=== PATIENT | female | born 1960 | race American Indian/Alaskan Native ===

== ENCOUNTER 2020-04-28 05:03 | Emergency (ER) | payer OTHER ==
--- NOTE | 2020-04-28 05:42 | Emergency Department Report ---
ED Chest Pain HPI - General Stated Complaint: CHEST PAIN PUI?: No Source: patient Mode of arrival: Ambulatory - History of Present Illness Initial Comments: Patient is a 59-year-old -[place] female with history of hypertension who presents for left arm and neck since yesterday morning. Pain is rated as 7/10. Sharp aching and reproducible. Patient states pain radiates from left posterior lateral neck into the left arm. pain is exacerbate by movement and palpation . there change no n/v, no dizziness no lightheadedness, no fever or chills, no cough, no history no diaphoresis. Symptoms rated getting is orally every 8 his weight and mildly irregularat 5/10 at this time. Weakness is a little while ago but not satisfied with the answer. MD Complaint: chest pain - Related Data Allergies Allergy/AdvReac Type Severity Reaction Status Date / Time No Known Allergies Allergy Unverified 02/14/16 09:15 ED Review of Systems ROS: Stated complaint: CHEST PAIN Other details as noted in HPI ED Past Medical Hx - Social History Smoking Status: Never Smoker Substance Use Type: None Critical care attestation.: If time is entered above; I have spent that time in minutes in the direct care of this critically ill patient, excluding procedure time. ED Disposition Condition: Stable Referrals: PRIMARY CARE, [Primary Care Provider] - 3-5 Days
--- NOTE | 2020-04-28 05:43 | Event Note ---
ED Screening Note Date of service: 04/28/20 Time: 05:42 ED Screening Note: Patient is a 59-year-old -[place] female with history of hypertension who presents for left arm and neck since yesterday morning. Pain is rated as 7/10. Sharp aching and reproducible. Patient states pain radiates from left posterior lateral neck into the left arm. pain is exacerbate by movement and palpation . there change no n/v, no dizziness no lightheadedness, no fever or chills, no cough, no history no diaphoresis. Symptoms rated getting is orally every 8 his weight and mildly irregularat 5/10 at this time. Weakness is a little while ago but not satisfied with the answer. MD Complaint: chest pain This initial assessment/diagnostic orders/clinical plan/treatment(s) is/are subject to change based on patients health status, clinical progression and re- assessment by fellow clinical providers in the ED. Further treatment and workup at subsequent clinical providers discretion. Patient/guardian urged not to elope from the ED as their condition may be serious if not clinically assessed and managed. Initial orders include: ekg, trop, bmp, cbc,cxr
[2020-04-28] MEDS ORDERED: ASPIRIN 325 MG TAB PO ONE (05:54)
[2020-04-28] MEDS ORDERED: ONDANSETRON 4 MG/2 ML INJ IV ONE (06:09)
[2020-04-28] MEDS ORDERED: MORPHINE 4 MG/1 ML INJ IV ONE (06:09)
[2020-04-28 06:15] LABS: Basophils % (Auto) 0.8 % (0.0-1.8); Eosinophils # (Auto) 0.6 K/mm3 (0.0-0.4); Eosinophils % (Auto) 11.3 % (0.0-4.3); Hematocrit 37.4 % (30.3-42.9); Hemoglobin 12.9 gm/dl (10.1-14.3); Lymphocytes # (Auto) 2.4 K/mm3 (1.2-5.4); Lymphocytes % (Auto) 44.4 % (13.4-35.0); Mean Corpuscular HGB Conc 34 % (30-34); Mean Corpuscular Volume 92 fl (79-97); Monocytes # (Auto) 0.5 K/mm3 (0.0-0.8); Monocytes % (Auto) 8.6 % (0.0-7.3); Platelet Count 307 K/mm3 (140-440); Red Blood Count 4.08 M/mm3 (3.65-5.03); Red Cell Distribution Width 13.8 % (13.2-15.2)
--- NOTE | 2020-04-28 06:15 | Emergency Department Report ---
HPI - General Chief Complaint: Neck Pain/Injury Time Seen by Provider: 04/28/20 06:02 - HPI HPI: This is a 59-year-old -[place] female who presents to the emergency department from home with complaint of pain to the left arm, left side of her neck, left side of the face, and a left-sided headache. The symptoms initially started last Friday, about 5 days ago. At this time it was intermittent, less intense, and mostly affecting the left upper arm and shoulder. However, this morning, around 5 AM, the patient says that it became much more intense, currently 9 out of 10 on a pain scale, and it started radiating up the left side of her face and the left side of the head. She denies any vision change, slurred speech, numbness or paresthesias, weakness. However, the patient does say that she has difficulty raising her left arm, essentially moving her left arm, secondary to increased pain. Earlier in the week the patient was taking Tylenol with some transient relief. The patient took ibuprofen last night around 8 PM, and then again around 1 AM this morning, without any relief. She has a past medical history of hypertension for which she is compliant on amlodipine 5 mg. Her primary care physician is a Dr. Tamra Meier, but she has not seen them regarding the symptoms. No recent travel or sick contacts at home. She denies any tobacco or illicit drug use. ED Past Medical Hx - Past Medical History Previous Medical History?: Yes Hx Hypertension: Yes - Surgical History Past Surgical History?: Yes Additional Surgical History: Hysterectomy - Social History Smoking Status: Never Smoker Substance Use Type: None - Medications Home Medications: Home Medications Medication Instructions Recorded Confirmed Last Taken Type HYDROcodone/APAP 5-325 [Winton 1 each PO Q6HR PRN #10 tablet 04/28/20 Unknown Rx 5/325] predniSONE [Deltasone] 20 mg PO QDAY #4 tab 04/28/20 Unknown Rx ED Review of Systems ROS: Stated complaint: CHEST PAIN Other details as noted in HPI Comment: All other systems reviewed and negative Constitutional: denies: chills, fever Eyes: denies: eye pain, vision change ENT: denies: ear pain, throat pain Respiratory: denies: cough, shortness of breath Cardiovascular: denies: chest pain, palpitations Gastrointestinal: denies: abdominal pain, vomiting Genitourinary: denies: dysuria, discharge Musculoskeletal: arthralgia, myalgia. denies: joint swelling Skin: denies: rash, lesions Neurological: headache. denies: numbness, paresthesias Physical Exam - Physical Exam Vital Signs: Vital Signs 04/28/20 05:10 Temperature 98.6 F Pulse Rate 94 H Respiratory 18 Rate Blood Pressure 166/109 O2 Sat by Pulse 98 Oximetry Physical Exam: GENERAL: The patient is well-developed well-nourished. HENT: Normocephalic. Atraumatic. Patient has moist mucous membranes. EYES: Extraocular motions are intact. Pupils equal reactive to light bilaterally. NECK: Supple. Trachea is midline. No carotid bruits auscultated. No posterior midline tenderness to palpation. Full range of motion. CHEST/LUNGS: Clear to auscultation. There is no respiratory distress noted. HEART/CARDIOVASCULAR: Regular. There is no tachycardia. There is no murmur. ABDOMEN: Abdomen is soft, nontender. Patient has normal bowel sounds. SKIN: Skin is warm and dry. NEURO: The patient is awake, alert, and oriented. The patient is cooperative. The patient has no focal neurologic deficits. Normal speech. MUSCULOSKELETAL: There is very mild tenderness to palpation to the left upper arm, but no obvious deformity. There is increased pain to the left arm with both passive and active range of motion. Radial pulse +2/4 and capillary refill less than 2 seconds to the affected left upper extremity. ED Course Vital Signs 04/28/20 05:10 Temperature 98.6 F Pulse Rate 94 H Respiratory 18 Rate Blood Pressure 166/109 O2 Sat by Pulse 98 Oximetry - Reevaluation(s) Reevaluation #1: 04/28/20 07:09 Patient just returned from CT. Her pain and symptoms are greatly improved. The head and facial pain has completely resolved. The arm pain is greatly decreased and only seems to bother her, or get exacerbated, when she tries to lift her arm above the level of her shoulder. We discussed the lab, EKG and chest x-ray results. I am waiting for the results of the CT studies. ED Medical Decision Making - Lab Data Result diagrams: 04/28/20 05:56 04/28/20 05:56 Lab Results 04/28/20 04/28/20 Range/Units 05:56 05:56 WBC 5.3 (4.5-11.0) K/mm3 RBC 4.08 (3.65-5.03) M/mm3 Hgb 12.9 (10.1-14.3) gm/dl Hct 37.4 (30.3-42.9) % MCV 92 (79-97) fl MCH 32 (28-32) pg MCHC 34 (30-34) % RDW 13.8 (13.2-15.2) % Plt Count 307 (140-440) K/mm3 Lymph % (Auto) 44.4 H (13.4-35.0) % [place] % (Auto) 8.6 H (0.0-7.3) % Eos % (Auto) 11.3 H (0.0-4.3) % Baso % (Auto) 0.8 (0.0-1.8) % Lymph # (Auto) 2.4 (1.2-5.4) K/mm3 [place] # (Auto) 0.5 (0.0-0.8) K/mm3 Eos # (Auto) 0.6 H (0.0-0.4) K/mm3 Baso # (Auto) 0.0 (0.0-0.1) K/mm3 Seg Neutrophils % 34.9 L (40.0-70.0) % Seg Neutrophils # 1.8 (1.8-7.7) K/mm3 Sodium 139 (137-145) mmol/L Potassium 4.3 (3.6-5.0) mmol/L Chloride 103.4 (98-107) mmol/L Carbon Dioxide 28 (22-30) mmol/L Anion Gap 12 mmol/L BUN 14 (7-17) mg/dL Creatinine 0.6 (0.6-1.2) mg/dL Estimated GFR > 60 ml/min BUN/Creatinine Ratio 23 % Glucose 108 H (65-100) mg/dL Calcium 9.2 (8.4-10.2) mg/dL Troponin T < 0.010 (0.00-0.029) ng/mL - EKG Data -: EKG Interpreted by [facility] EKG shows normal: sinus rhythm, axis, intervals, QRS complexes, ST-T waves (Some flattening of the T waves) Rate: normal - EKG Data When compared to previous EKG there are: previous EKG unavailable Interpretation: other (Sinus rhythm at 69 bpm, normal axis, normal intervals, flattening of T waves. No ST elevation HI.) - Radiology Data Radiology results: report reviewed CT HEAD WITHOUT CONTRAST INDICATION / CLINICAL INFORMATION: Left sided head and neck pain. TECHNIQUE: All CT scans at this location are performed using CT dose reduction for ALARA by means of automated exposure control. COMPARISON: None available. FINDINGS: HEMORRHAGE: None. EXTRA-AXIAL SPACES: Normal in size and morphology for the patient's age. VENTRICULAR SYSTEM: Normal in size and morphology for the patient's age. CEREBRAL PARENCHYMA: No significant abnormality. No acute territorial infarct. MIDLINE SHIFT / HERNIATION: None. CEREBELLUM / BRAINSTEM: No significant abnormality. ORBITS: Normal as vis ualized. SOFT TISSUES: No significant abnormality. SKULL: No significant abnormality. PARANASAL SINUSES / MASTOID AIR CELLS: Mild ethmoid mucosal thickening. ADDITIONAL FINDINGS: None. IMPRESSION: 1. No acute intracranial abnormality. CTA NECK WITH CONTRAST HISTORY: Left-sided head and neck pain COMPARISON: CT head performed earlier today TECHNIQUE: Routine CTA of the neck is performed. 3-D/MIP reformats were postprocessed. Percentage stenosis is determined by direct quantitative measurements of diseased internal carotid artery diameter compared with normal distal internal carotid artery reference segments or by criteria similar to NASCET where applicable. CONTRAST: 100 ml of Omnipaque 350 FINDINGS: Aortic arch: No significant abnormality. Cervical vertebral arteries: No significant abnormality. Common carotid arteries: No significant abnormality. Cervical internal carotid arteries: No significant abnormality. Additional findings: None. IMPRESSION: No significant abnormality. CTA HEAD WITH CONTRAST HISTORY: Left-sided head and neck pain COMPARISON: CT head performed earlier today TECHNIQUE: Routine non-contrast CT Head, CTA of the head and post-contrast CT Head are performed. 3-D/MIP reformats postprocessed. All CT scans at this location are performed using CT dose reduction for ALARA by means of automated exposure control CONTRAST: 100 ml of Omnipaque 350 FINDINGS: CTA Head: Intracranial vertebral arteries: No significant abnormality. Basilar artery: No significant abnormality. Posterior cerebral arteries: No significant abnormality. Intracranial internal carotid arteries: Mild to moderate partially calcified plaques are identified in the supraclinoid ICA. The left side is slightly more affected with narrowing estimated at 50%. Anterior cerebral arteries: The left A1 segment is hypoplastic. The anterior cerebral arteries are patent otherwise. Middle cerebral arteries: No significant abnormality. Dural venous sinuses:Not optimally opacified. No significant abnormality. Additional findings: None. IMPRESSION: No hemodynamically significant stenosis, large vessel occlusion or aneurysm. Mild to moderate atherosclerotic disease in the supraclinoid ICAs, left greater than right. - Medical Decision Making This patient presents to the emergency department with intense left arm, neck, face and head pain. She had been mostly dealing with the arm and neck pain over the past week but the other symptoms started, and the pain worsened, this morning. On examination the patient does not have any focal, motor or sensory deficits. There is some reproducible tenderness to palpation along the left arm and left shoulder. Unable to reproduce facial and head pain to palpation. Cranial nerves II through XII grossly intact. The patient has full range of motion of the left upper extremity but both passive and active range of motion causes increased pain. She has good capillary refill and a radial pulse and appears neurovascularly intact. Patient had an EKG done through triage that shows no morphology consistent with ST elevation myocardial infarction or any dysrhythmia. Labs also are unremarkable including CBC, metabolic panel and a negative troponin. The patient had a negative CT scan of the head without contrast that did not show any evidence of hemorrhage or large vessel occlusion. A CT angiography of the head and neck was ordered to rule out carotid or vertebral dissection, signs of vasculitis, and to look into other etiology of the patient's symptoms. Overall the CT angiography studies were negative for any acute process or etiology of the patient's complaints. Incidentally it shows mild to moderate left carotid narrowing due to atherosclerosis and this was discussed with the patient. The patient received 1 dose of IV analgesia and upon reevaluation the head and facial pain have resolved and the arm pain is greatly reduced. She was reevaluated multiple times over multiple hours and says she is feeling greatly improved. Vital signs have been reassuring throughout her ED course. She will be discharged home to follow-up with her primary care physician and will return to the emergency department with any worsening of her symptoms or with any acute distress. Critical Care Time: No Critical care attestation.: If time is entered above; I have spent that time in minutes in the direct care of this critically ill patient, excluding procedure time. ED Disposition Clinical Impression: Facial pain, Left arm pain, Neuropathy Headache Qualifiers: Headache type: unspecified Headache chronicity pattern: unspecified pattern Intractability: not intractable Qualified Code(s): R51.9 - Headache, unspecified Disposition: DC-01 TO HOME OR SELFCARE Is pt being admited?: No Condition: Stable Instructions: General Headache Without Cause, Neuropathic Pain Additional Instructions: Please follow-up with your primary care physician in the next few days. Take your medications as prescribed. You have been prescribed a medication that is sedating and therefore should not be taken prior to driving, working, and responsible for children and in no way should be mixed with alcohol of any quantity. Return to the emergency department with any worsening of your symptoms, new or concerning symptoms not addressed during this current emergency department visit, or with any acute distress. Prescriptions: predniSONE [Deltasone] 20 mg PO QDAY #4 tab HYDROcodone/APAP 5-325 [[place] 5/325] 1 each PO Q6HR PRN #10 tablet PRN Reason: Pain Referrals: PRIMARY CARE, [Primary Care Provider] - 2-3 Days Time of Disposition: 07:56 Heart Score - HEART Score History: Slightly suspicious EKG: Normal Age: 45-65 Risk factors: 1-2 risk factors Troponin: < normal limit HEART Score: 2 - Critical Actions Critical Actions: 0-3 pts:0.9-1.7%risk of adverse cardiac event.Candidate for discharge
[2020-04-28 06:31] LABS: BUN/Creatinine Ratio 23; Blood Urea Nitrogen 14 mg/dL (7-17); Calcium 9.2 mg/dL (8.4-10.2); Hemolysis Index 0
[2020-04-28] MEDS ORDERED: methylPREDNISolone Sod Succinate 125 MG/2 ML INJ IV ONE (06:32)
--- NOTE | 2020-04-28 06:36 | XRay Report ---
CHEST 1 VIEW 04/28/2020 5:17 AM INDICATION / CLINICAL INFORMATION: Chest Pain. COMPARISON: None available. FINDINGS: SUPPORT DEVICES: None. HEART / MEDIASTINUM: No significant abnormality. LUNGS / PLEURA: No significant pulmonary or pleural abnormality. No pneumothorax. ADDITIONAL FINDINGS: No significant additional findings. IMPRESSION: 1. No acute findings. No change. Signer Name: Fei Hui MD Signed: 04/28/2020 6:32 AM Workstation Name: [id number]
--- NOTE | 2020-04-28 07:21 | Cat Scan Report ---
CT HEAD WITHOUT CONTRAST INDICATION / CLINICAL INFORMATION: Left sided head and neck pain. TECHNIQUE: All CT scans at this location are performed using CT dose reduction for ALARA by means of automated exposure control. COMPARISON: None available. FINDINGS: HEMORRHAGE: None. EXTRA-AXIAL SPACES: Normal in size and morphology for the patient's age. VENTRICULAR SYSTEM: Normal in size and morphology for the patient's age. CEREBRAL PARENCHYMA: No significant abnormality. No acute territorial infarct. MIDLINE SHIFT / HERNIATION: None. CEREBELLUM / BRAINSTEM: No significant abnormality. ORBITS: Normal as visualized. SOFT TISSUES: No significant abnormality. SKULL: No significant abnormality. PARANASAL SINUSES / MASTOID AIR CELLS: Mild ethmoid mucosal thickening. ADDITIONAL FINDINGS: None. IMPRESSION: 1. No acute intracranial abnormality. Signer Name: Fei Hui MD Signed: 04/28/2020 7:17 AM Workstation Name: [id number]
--- NOTE | 2020-04-28 07:48 | Cat Scan Report ---
CTA NECK WITH CONTRAST HISTORY: Left-sided head and neck pain COMPARISON: CT head performed earlier today TECHNIQUE: Routine CTA of the neck is performed. 3-D/MIP reformats were postprocessed. Percentage st enosis is determined by direct quantitative measurements of diseased internal carotid artery diameter compared with normal distal internal carotid artery reference segments or by criteria similar to CHAS CET where applicable. CONTRAST: 100 ml of Omnipaque 350 FINDINGS: Aortic arch: No significant abnormality. Cervical vertebral arteries: No significant abnormality. Common carotid arteries: No significant abnormality. Cervical internal carotid arteries: No significant abnormality. Additional findings: None. IMPRESSION: No significant abnormality. CTA HEAD WITH CONTRAST HISTORY: Left-sided head and neck pain COMPARISON: CT head performed earlier today TECHNIQUE: Routine non-contrast CT Head, CTA of the head and post-contrast CT Head are performed. 3-D /MIP reformats postprocessed. All CT scans at this location are performed using CT dose reduction for ALARA by means of automated e xposure control CONTRAST: 100 ml of Omnipaque 350 FINDINGS: CTA Head: Intracranial vertebral arteries: No significant abnormality. Basilar artery: No significant abnormality. Posterior cerebral arteries: No significant abnormality. Intracranial internal carotid arteries: Mild to moderate partially calcified plaques are identified i n the supraclinoid ICA. The left side is slightly more affected with narrowing estimated at 50%. Anterior cerebral arteries: The left A1 segment is hypoplastic. The anterior cerebral arteries are pa tent otherwise. Middle cerebral arteries: No significant abnormality. Dural venous sinuses:Not optimally opacified. No significant abnormality. Additional findings: None. IMPRESSION: No hemodynamically significant stenosis, large vessel occlusion or aneurysm. Mild to moderate atheros clerotic disease in the supraclinoid ICAs, left greater than right. Signer Name: Sánchez Bai Jr, MD Signed: 04/28/2020 7:44 AM Workstation Name: [id number]
[2020-04-28 08:33] VITALS: BP 128/69
== END 2020-04-28 08:10 | disposition home or self-care (01) ==
LOC: ED 05:03
DX: G62.9 Polyneuropathy, unspecified (principal); R51.9 Headache, unspecified; M79.602 Pain in left arm; I10 Essential (primary) hypertension; Z90.710 Acquired absence of both cervix and uterus; Z79.899 Other long term (current) drug therapy
CPT/HCPCS: 36415; 70450; 70496; 70498; 71045; 80048; 84484; 85025; 93005; 96374; 96375; 99285; J2270; J2405; J2930; Q9967

== ENCOUNTER 2021-06-01 11:18 | Emergency (ER) | payer OTHER ==
[2021-06-01] MEDS ORDERED: SODIUM CHLORIDE 0.9% 1000 ML 1,000 ML IV ONE (11:43)
[2021-06-01] MEDS ORDERED: KETOROLAC 30 MG/1 ML INJ IV ONE (11:43)
--- NOTE | 2021-06-01 12:17 | XRay Report ---
CHEST 1 VIEW 06/01/2021 11:47 AM INDICATION / CLINICAL INFORMATION: Dyspnea. COMPARISON: 04/28/2020 FINDINGS: SUPPORT DEVICES: None. HEART / MEDIASTINUM: No significant abnormality. LUNGS / PLEURA: No significant pulmonary or pleural abnormality. No pneumothorax. ADDITIONAL FINDINGS: No significant additional findings. IMPRESSION: 1. No acute findings. Signer Name: Jaycob Collins MD Signed: 06/01/2021 12:13 PM Workstation Name: [id number]
[2021-06-01 12:29] LABS: Basophils # (Auto) 0.1 K/mm3 (0.0-0.1); Eosinophils # (Auto) 0.3 K/mm3 (0.0-0.4); Eosinophils % (Auto) 5.5 % (0.0-4.3); Hematocrit 37.8 % (30.3-42.9); Hemoglobin 12.4 gm/dl (10.1-14.3); Lymphocytes # (Auto) 2.1 K/mm3 (1.2-5.4); Lymphocytes % (Auto) 41.6 % (13.4-35.0); Mean Corpuscular HGB Conc 33 % (30-34); Mean Corpuscular Volume 90 fl (79-97); Monocytes # (Auto) 0.6 K/mm3 (0.0-0.8); Monocytes % (Auto) 11.7 % (0.0-7.3); Platelet Count 382 K/mm3 (140-440); Red Blood Count 4.19 M/mm3 (3.65-5.03); Red Cell Distribution Width 13.9 % (13.2-15.2)
[2021-06-01 12:41] LABS: INR 0.95 (0.87-1.13)
[2021-06-01 12:51] LABS: Alanine Aminotransferase 31 units/L (7-56); Albumin 4.6 g/dL (3.9-5); Blood Urea Nitrogen 17 mg/dL (7-17); Calcium 9.9 mg/dL (8.4-10.2); Hemolysis Index 1
[2021-06-01 12:52] LABS: BUN/Creatinine Ratio 24
--- NOTE | 2021-06-01 13:09 | Cat Scan Report ---
CT HEAD WITHOUT CONTRAST INDICATION / CLINICAL INFORMATION: Headache. TECHNIQUE: All CT scans at this location are performed using CT dose reduction for ALARA by means of automated e xposure control. COMPARISON: CT head 04/28/2020 FINDINGS: HEMORRHAGE: No evidence of intracranial hemorrhage or extra-axial fluid collection. EXTRA-AXIAL SPACES: Cortical sulci, sylvian fissures and basilar cisterns have an unremarkable appear ance. VENTRICULAR SYSTEM: The third and lateral ventricles are of normal size and configuration. CEREBRAL PARENCHYMA: No areas of abnormal brain parenchymal attenuation are identified. There is no i ndication of recent infarction. MIDLINE SHIFT OR HERNIATION: There is no mass effect. CEREBELLUM / BRAINSTEM: Brainstem and cerebellum have an unremarkable appearance. MIDLINE STRUCTURES:No abnormalities of the pituitary gland or pineal region are identified. INTRACRANIAL VESSELS: Calcified atherosclerotic plaque is seen along the course the cavernous segment s of both internal carotid arteries extending up through the communicating segments bilaterally. ORBITS: visualized portions of the orbits have an unremarkable appearance. SOFT TISSUES of HEAD: No significant abnormality. CALVARIUM: Evaluation of bone windows reveals no abnormalities. PARANASAL SINUSES / MASTOID AIR CELLS: Inflammatory mucosal disease is present in ethmoid air cells b ilaterally and within the left sphenoid sinus. Similar findings were present on previous study. ADDITIONAL FINDINGS: None. IMPRESSION: 1. No significant intercranial abnormality on head CT without contrast. No significant interval jessica e since prior study 04/28/2020. Signer Name: Charles Machuca MD Signed: 06/01/2021 1:05 PM Workstation Name: [email or web address]
[2021-06-01] MEDS ORDERED: dexAMETHasone 4 MG/ML VIAL IV ONE (13:20)
--- NOTE | 2021-06-01 15:15 | Cat Scan Report ---
CT LUMBAR SPINE WITHOUT CONTRAST INDICATION: pain. TECHNIQUE: Axial CT images of the lumbar spine were obtained. Sagittal and coronal reformatted images were produ abad. All CT scans at this location are performed using CT dose reduction for ALARA by means of automa dorinda exposure control. COMPARISON: None available. FINDINGS: POST-SURGICAL CHANGES: None. ALIGNMENT: Normal alignment is maintained throughout the lumbar region. VERTEBRAE: Schmorl's node deformity is seen at inferior endplate T12 and superior endplate L3. No ind ication of fracture or bone destruction is observed. INTERVERTEBRAL DISCS: Multifocal disc vacuum phenomenon is noted. [id number] ANALYSIS: T12-L1.: Disc vacuum phenomena is evident. Schmorl's node deformity is present at inferior endplate T 12. There is no indication of disc herniation, central canal stenosis or neuroforaminal narrowing. L1-2: Loss of disc height and disc vacuum phenomena are noted. Anterior osteophyte formation is obser vicente. Bilateral facet arthropathy is evident. Mild broad-based disc bulge is present. In spite of thes e degenerative changes, the central spinal canal and neuroforamina are adequately maintained. L2-3: Mild anterior osteophyte formation is observed. Small broad-based disc bulge is present without significant thecal sac deformity. Mild bilateral facet arthritic changes are observed. Central spina l canal and neuroforamina are adequately maintained. L3-4: Loss of disc height and disc vacuum phenomena are noted. Bilateral facet arthropathy is evident . Hypertrophic changes and bilateral facet joint vacuum phenomena is observed. Mild broad-based disc bulge flattens the thecal sac slightly. Central spinal canal and neuroforamina are adequately maintai altagracia. L4-5: Disc height is normally maintained. There is no indication of disc extrusion or central canal s tenosis. Bilateral facet arthritic changes are observed. Hypertrophic changes and bilateral facet nikolas nt vacuum phenomena is observed. Central spinal canal and neuroforamina remain adequate in size at th e L4-5 level. L5-S1: Disc height is normally maintained. Mild facet arthropathy is present bilaterally. There is no indication of disc extrusion, central canal stenosis or neuroforaminal narrowing. Visualized portions of the sacrum have an unremarkable appearance. PARASPINAL SOFT TISSUES: No significant abnormality. ADDITIONAL FINDINGS: None. IMPRESSION: 1. Widespread lumbar spondylosis as described level by level above. 2. Central spinal canal and neuroforamina are adequately maintained throughout the lumbar region. Signer Name: Charles Machuca MD Signed: 06/01/2021 3:11 PM Workstation Name: [id number]
--- NOTE | 2021-06-01 15:33 | Emergency Department Report ---
ED General Adult HPI - General Chief complaint: Headache Stated complaint: SEVERE HEADACHE Time Seen by Provider: 06/01/21 11:42 Source: patient, EMS Mode of arrival: Stretcher Limitations: No Limitations - History of Present Illness Initial comments: sudden onset IRIZARRY, hypertensive at work , came in for suspicion of stroke, pt had headche then almost passed out no head injury back pain going to her legs -: Gradual, Sudden, hour(s) Location: head, lower extremity Severity scale (0 -10): 4 Quality: aching Consistency: intermittent Improves with: none Worsens with: none - Related Data Previous Rx's Medication Instructions Recorded Last Taken Type HYDROcodone/APAP 5-325 [[place] 1 each PO Q6HR PRN #10 tablet 04/28/20 Unknown Rx 5/325] predniSONE [Deltasone] 20 mg PO QDAY #4 tab 04/28/20 Unknown Rx Allergies Allergy/AdvReac Type Severity Reaction Status Date / Time No Known Allergies Allergy Verified 06/01/21 11:34 ED Review of Systems ROS: Stated complaint: SEVERE HEADACHE Other details as noted in HPI Constitutional: denies: chills, fever Eyes: denies: eye pain, eye discharge, vision change ENT: denies: ear pain, throat pain Respiratory: denies: cough, shortness of breath, wheezing Cardiovascular: denies: chest pain, palpitations Endocrine: no symptoms reported Gastrointestinal: denies: abdominal pain, nausea, diarrhea Genitourinary: denies: urgency, dysuria, discharge Musculoskeletal: denies: back pain, joint swelling, arthralgia Skin: denies: rash, lesions Neurological: denies: headache, weakness, paresthesias Psychiatric: denies: anxiety, depression Hematological/Lymphatic: denies: easy bleeding, easy bruising ED Past Medical Hx - Past Medical History Previous Medical History?: No Hx Hypertension: Yes Hx CVA: No Hx Heart Attack/AMI: No - Surgical History Past Surgical History?: No Additional Surgical History: Hysterectomy - Social History Smoking Status: Never Smoker Substance Use Type: None - Medications Home Medications: Home Medications Medication Instructions Recorded Confirmed Last Taken Type HYDROcodone/APAP 5-325 [[place] 1 each PO Q6HR PRN #10 tablet 04/28/20 Unknown Rx 5/325] predniSONE [Deltasone] 20 mg PO QDAY #4 tab 04/28/20 Unknown Rx ED Physical Exam - General Limitations: No Limitations General appearance: alert, in no apparent distress - Head Head exam: Present: atraumatic, normocephalic - Eye Eye exam: Present: normal appearance - ENT ENT exam: Present: mucous membranes moist - Neck Neck exam: Present: normal inspection - Respiratory Respiratory exam: Present: normal lung sounds bilaterally. Absent: respiratory distress - Cardiovascular Cardiovascular Exam: Present: regular rate, normal rhythm. Absent: systolic murmur, diastolic murmur, rubs, gallop - GI/Abdominal GI/Abdominal exam: Present: soft, normal bowel sounds - Extremities Exam Extremities exam: Present: normal inspection - Back Exam Back exam: Present: tenderness - Neurological Exam Neurological exam: Present: alert, oriented X3 - Psychiatric Psychiatric exam: Present: normal affect, normal mood - Skin Skin exam: Present: warm, dry, intact, normal color. Absent: rash ED Course Vital Signs 06/01/21 06/01/21 06/01/21 11:27 11:34 11:37 Temperature 97.5 F L 99 F Pulse Rate 100 H 110 H 113 H Respiratory 17 20 17 Rate Blood Pressure Blood Pressure 195/95 196/95 [Left] O2 Sat by Pulse 100 100 100 Oximetry 06/01/21 06/01/21 06/01/21 11:45 12:01 12:15 Temperature Pulse Rate 96 H 80 78 Respiratory 17 20 19 Rate Blood Pressure 171/73 132/72 140/73 Blood Pressure [Left] O2 Sat by Pulse 100 100 100 Oximetry 06/01/21 06/01/21 06/01/21 12:43 12:45 13:01 Temperature Pulse Rate 85 88 87 Respiratory 14 15 14 Rate Blood Pressure 189/128 189/128 139/82 Blood Pressure [Left] O2 Sat by Pulse 100 99 100 Oximetry 06/01/21 06/01/21 06/01/21 13:15 13:31 13:45 Temperature Pulse Rate 77 85 79 Respiratory 13 16 12 Rate Blood Pressure 145/78 131/80 118/88 Blood Pressure [Left] O2 Sat by Pulse 100 100 100 Oximetry 06/01/21 06/01/21 14:01 14:08 Temperature Pulse Rate 93 H Respiratory 15 Rate Blood Pressure 141/78 Blood Pressure 141/78 [Left] O2 Sat by Pulse 100 Oximetry ED Medical Decision Making - Lab Data Result diagrams: 06/01/21 11:57 06/01/21 11:57 - Radiology Data Radiology results: report reviewed, image reviewed - Medical Decision Making work up neg , ,ubar ct showed spondylosis , vss no distress BP imrpoved, back to [facility] Critical care attestation.: If time is entered above; I have spent that time in minutes in the direct care of this critically ill patient, excluding procedure time. ED Disposition Clinical Impression: Back pain, Sciatica, Headache Disposition: HOME / SELF CARE / HOMELESS Is pt being admited?: No Does the pt Need Aspirin: No Condition: Stable Referrals: PAXTON FRANKS [Other] - 3-5 Days
[2021-06-01 17:04] VITALS: BP 131/66
== END 2021-06-01 15:50 | disposition home or self-care (01) ==
LOC: ED 11:18
DX: R51.9 Headache, unspecified (principal); M54.30 Sciatica, unspecified side; I10 Essential (primary) hypertension; Z98.890 Other specified postprocedural states
CPT/HCPCS: 36415; 70450; 71045; 72131; 80053; 85025; 85610; 86140; 96361; 96374; 96375; 99285; J1100; J1885; J7030; Q0162